=== PATIENT | female | born 1980 | race Caucasian/White ===

== ENCOUNTER 2018-08-14 10:48 | Emergency (ER) | payer MEDICAID ==
[2018-08-14 10:56] VITALS: BP 132/77
--- NOTE | 2018-08-14 11:28 | ER Document Report ---
ED General - General Chief Complaint: Medication Refill Stated Complaint: MED REFILL Time Seen by Provider: 08/14/18 11:21 Mode of Arrival: Ambulatory Information source: Patient Notes: Patient is a 38-year-old female comes emergency room requesting a refill of medications for gabapentin. Patient states she moved from [place] here 2 months ago and she brings with her a bottle written in [place] for that period of time and she is down to just a few pills. She has not been able to find a local primary care provider as of yet and she was changing her Medicare from [place] to here and has not gone through yet. Patient is currently taking this medication for 2 herniated disc in the low back and for fibromyalgia. She has no other complaints at this time and his only medication she is requesting a refill on. TRAVEL OUTSIDE OF THE U[place]. IN LAST 30 DAYS: No - HPI Onset: Other - Nearly out only a few days left. Quality of pain: Achy Associated symptoms: None Exacerbated by: Denies Relieved by: Denies Similar symptoms previously: Yes Recently seen / treated by doctor: No - Related Data Allergies/Adverse Reactions: prednisone Allergy (Verified 08/14/18 10:50) Past Medical History - General Information source: Patient - Social History Smoking Status: Never Smoker Cigarette use (# per day): No Chew tobacco use (# tins/day): No Smoking Education Provided: No Frequency of alcohol use: None Drug Abuse: None Family History: Reviewed & Not Pertinent Patient has suicidal ideation: No Patient has homicidal ideation: No Renal/ Medical History: Denies: Hx Peritoneal Dialysis Past Surgical History: Reports: Hx Orthopedic Surgery - R femur sumeet placed, Hx Tubal Ligation Review of Systems - Review of Systems Constitutional: No symptoms reported EENT: No symptoms reported Cardiovascular: No symptoms reported Respiratory: No symptoms reported Gastrointestinal: No symptoms reported Genitourinary: No symptoms reported Female Genitourinary: No symptoms reported Musculoskeletal: Back pain Skin: No symptoms reported Hematologic/Lymphatic: No symptoms reported Neurological/Psychological: No symptoms reported -: Yes All other systems reviewed and negative Physical Exam - Vital signs Vitals: Temp Pulse Resp BP Pulse Ox 98.0 F 68 16 132/77 H 94 08/14/18 10:55 08/14/18 10:55 08/14/18 10:55 08/14/18 10:55 11/18/18 10:55 Interpretation: Hypertensive - Notes Notes: PHYSICAL EXAMINATION: GENERAL: Well-appearing, well-nourished and in no acute distress. HEAD: Atraumatic, normocephalic. EYES: Pupils equal round and reactive to light, extraocular movements intact, conjunctiva are normal. NECK: Normal range of motion, supple without lymphadenopathy LUNGS: Breath sounds clear to auscultation bilaterally and equal. No wheezes rales or rhonchi. HEART: Regular rate and rhythm without murmur Female : deferred Musculoskeletal: Normal range of motion, no pitting or edema. No cyanosis. NEUROLOGICAL Normal speech, normal gait. Normal sensory, motor exams PSYCH: Normal mood, normal affect. Course - Re-evaluation Re-evalutation: 08/14/18 11:28 After discussing patient reasoning for having to need refill of medications I have decided that she is giving me a good story do believe that she is actually run out of her running out of her medication and I am going to give her a 10- day supply. I have also can give her a family practice list. - Vital Signs Vital signs: Temp Pulse Resp BP Pulse Ox 98.0 F 68 16 132/77 H 94 08/14/18 10:55 08/14/18 10:55 08/14/18 10:55 08/14/18 10:55 08/14/18 10:55 Discharge - Discharge Clinical Impression: Medication refill Condition: Stable Disposition: HOME, SELF-CARE Instructions: Family Physicians / Practices Additional Instructions: As we discussed I am more than happy to give you a refill on the gabapentin for 10 days. I am also going to give you a list for referrals to family practice is they are in the area of the you may contact. Clinics there is one across the street from the hospital you may try the rested step to look them up in on the Internet. Further intervention return to ER for a recheck. Prescriptions: Gabapentin [Neurontin 300 mg Capsule] 300 mg PO ASDIR #70 capsule Referrals: [facility] [NO LOCAL MD] - Follow up as needed
== END 2018-08-14 11:37 | disposition home or self-care (01) ==
LOC: ER 10:48
DX: Z76.0 Encounter for issue of repeat prescription (principal)
CPT/HCPCS: 99282

== ENCOUNTER 2018-11-27 20:15 | Emergency (ER) | payer MEDICAID ==
--- NOTE | 2018-11-27 21:11 | RADIOLOGY REPORT (SQ) ---
EXAM DESCRIPTION: XR FOOT 3 OR MORE VIEWS COMPLETED DATE/TME: 11/27/2018 00:00 CLINICAL HISTORY: 38 years, Female, Dropped a pallet on R foot/ painful COMPARISON: None. FINDINGS: No fracture or dislocation. Soft tissues are unremarkable. IMPRESSION: No acute abnormality.
[2018-11-27] MEDS ORDERED: TRAMADOL HCL 50 MG TABLET PO ONE (21:37)
--- NOTE | 2018-11-27 21:40 | ER Document Report ---
ED General - General Chief Complaint: Foot Injury Stated Complaint: FOOT INJURY Time Seen by Provider: 11/27/18 21:29 Mode of Arrival: Ambulatory Information source: Patient TRAVEL OUTSIDE OF THE U[place] IN LAST 30 DAYS: No - HPI Patient complains to provider of: Right foot injury Onset: This afternoon Onset/Duration: Sudden Quality of pain: Sharp, Throbbing Severity: Moderate Associated symptoms: None Exacerbated by: Movement, Walking Relieved by: Denies Similar symptoms previously: No Recently seen / treated by doctor: No Notes: 38-year-old female with right foot injury. History of fracture in the right foot in the past. Dropped a heavy pallet on it today. Hurts to bear weight. Concerned that is fractured again. - Related Data Allergies/Adverse Reactions: lidocaine Allergy (Verified 11/27/18 20:20) prednisone Allergy (Verified 08/14/18 10:50) succinylcholine Allergy (Verified 11/27/18 20:20) Past Medical History - General Information source: Patient - Social History Smoking Status: Never Smoker Chew tobacco use (# tins/day): No Frequency of alcohol use: None Drug Abuse: None Family History: Reviewed & Not Pertinent Patient has suicidal ideation: No Patient has homicidal ideation: No Pulmonary Medical History: Reports: Hx Asthma Neurological Medical History: Reports: Hx Migraine Renal/ Medical History: Denies: Hx Peritoneal Dialysis Past Surgical History: Reports: Hx Orthopedic Surgery - R femur sumeet placed, Hx Tubal Ligation Review of Systems - Review of Systems Notes: Constitutional: No fevers. No chills. EENT: No eye redness. No eye pain. No ear pain. No sore throat. Cardiovascular: No chest pain. No palpitations. Respiratory: No cough. No shortness of breath. No respiratory distress. Gastrointestinal: No abdominal pain. No nausea, vomiting, or diarrhea. Genitourinary: Atraumatic. No lesions. No pain. No discharge. Musculoskeletal: Positive for right foot pain Skin: No rash or lesions. Lymphatic: No swollen lymph nodes. Neurologic: No headache. No syncope. Psychiatric: No suicidal or homicidal ideation. Physical Exam - Vital signs Vitals: Temp Pulse Resp BP Pulse Ox 98.7 F 70 16 110/67 98 11/27/18 20:21 11/27/18 20:21 11/27/18 20:21 11/27/18 20:21 11/27/18 20:21 - Notes Notes: General: Well-developed, well-nourished. In no acute distress. Non-toxic appearing. Cardiac: Well-perfused. Regular rate and rhythm. No murmurs, rubs, or gallops. Pulmonary: No respiratory distress. No cyanosis. Bilateral lung fiels are clear to auscultation. Abdominal: Non-distended. Non-rigid. Bowels sounds are present in all four quadrants. No guarding or rebound. HEENT: Head is atraumatic. Conjunctivae not reddened. No tearing. PERRL. EOMI. Orbits atraumatic. No periorbital swelling or erythema. Oropharynx is without erythema, swelling, or exudates. Neck: Supple. No adenopathy. No meningismus. Dermatologic: Warm with good turgor. No rash. Atraumatic. Chest: Atraumatic. No chest wall tenderness to palpation. Musculoskeletal: Moves all extremities well. No range of motion deficits. no muscular or joint tenderness. No paraspinal muscle tenderness. no midline spinal tenderness or step-off. Mild bruising mild soft tissue swelling dorsal aspect mid right foot tenderness to palpation. No deformity. No point bony tenderness. Distal neurovascular exam is intact. Full range of motion. Genitourinary: Examination deferred Neurologic: No gross neurologic deficits. Psychiatric: Normal mood. Course - Re-evaluation Re-evalutation: 11/27/18 21:38 Rays are negative. Will Uyriy wrap and discharge - Vital Signs Vital signs: Temp Pulse Resp BP Pulse Ox 98.7 F 70 16 110/67 98 11/27/18 20:21 11/27/18 20:21 11/27/18 20:21 11/27/18 20:21 11/27/18 20:21 - Diagnostic Test Radiology reviewed: Reports reviewed Discharge - Discharge Clinical Impression: Foot contusion Qualifiers: Encounter type: initial encounter Laterality: right Qualified Code(s): S90.31XA - Contusion of right foot, initial encounter Condition: Good Disposition: HOME, SELF-CARE Instructions: Contusion ([facility]) Additional Instructions: Ice for 20 minutes/h. Keep elevated as able. Yuriy wrap should keep the swelling down. Up with your doctor as needed Prescriptions: Tramadol HCl/Acetaminophen [Ultracet 37.5 mg/325 mg Tablet] 1 each PO Q6HP PRN #12 tablet PRN Reason: Referrals: [facility] [Provider Group] - Follow up in 1 week
[2018-11-27 21:48] VITALS: BP 116/71
== END 2018-11-27 21:51 | disposition home or self-care (01) ==
LOC: ER 20:15
DX: S90.31XA Contusion of right foot, initial encounter (principal); M79.671 Pain in right foot; W20.8XXA Other cause of strike by thrown, projected or falling object, initial encounter; J45.909 Unspecified asthma, uncomplicated; Z88.4 Allergy status to anesthetic agent; Z88.8 Allergy status to other drugs, medicaments and biological substances
CPT/HCPCS: 99283

== ENCOUNTER 2019-01-02 21:41 | Emergency (ER) | payer MEDICAID ==
[2019-01-02 22:02] VITALS: BP 141/97
[2019-01-02 23:24] LABS: ABSOLUTE BASOPHILS # (AUTO) 0.1 10^3/uL (0.0-0.2); ABSOLUTE EOSINOPHILS # (AUTO) 0.1 10^3/uL (0.0-0.6); ABSOLUTE MONOCYTES (AUTO) 0.7 10^3/uL (0.1-1.4); ABSOLUTE NEUT (AUTO) 6.8 10^3/uL (1.7-8.2); BASOPHILS % (AUTO) 1.2 % (0-2); HEMATOCRIT 39.4 % (36.0-47.0); HEMOGLOBIN 13.5 g/dL (12.0-15.5); LYMPHOCYTES % (AUTO) 20.8 % (13-45); MEAN CORPUSCULAR HEMOGLOBIN 31.2 pg (27.0-33.4); MEAN CORPUSCULAR HGB CONC 34.3 g/dL (32.0-36.0); MEAN CORPUSCULAR VOLUME 91 fl (80-97); MONOCYTES % (AUTO) 7.3 % (3-13); PLATELET COUNT 156 10^3/uL (150-450); RED BLOOD COUNT 4.32 10^6/uL (3.72-5.28); RED CELL DISTRIBUTION WIDTH 13.1 % (11.5-14.0); SEGMENTED NEUTROPHILS % (AUTO) 69.7 % (42-78); TOTAL CELLS COUNTED % (AUTO) 100 %; WHITE BLOOD COUNT 9.7 10^3/uL (4.0-10.5)
[2019-01-02] MEDS ORDERED: MECLIZINE HCL 25 MG TABLET PO ONE (23:26)
--- NOTE | 2019-01-02 23:30 | ER Document Report ---
ED General - General Chief Complaint: Neck Pain >24hrs old Stated Complaint: NECK PAIN,NAUSEA,VOMITING Time Seen by Provider: 01/02/19 23:16 Primary Care Provider: NASIMA PAULINO PA-C [Primary Care Provider] - Follow up as needed TRAVEL OUTSIDE OF THE [place] IN LAST 30 DAYS: No - HPI Notes: Patient is a 38-year-old female that presents to the emergency department for chief complaint of neck pain and dizziness. Patient reports pain in the back of her neck associated with dizziness for the last 3 days. She states anytime she looks down the dizziness is worse. She can get relief of the dizziness when laying completely flat on her back. She denies history of vertigo in the past. She denies any recent sinus congestion or pressure in her ears. Patient does frequently see a chiropractor and had a last cervical adjustment by him 2 weeks ago. He has taught her how to do cervical spine adjustments at home which she states she does almost daily. She is reporting a tight sharp pain that is midline in the back of her neck. She does chronically have neck pain but states this feels different. The pain is worse when she moves. She has tried Flexeril with no improvement of symptoms. Patient denies any fevers or chills. She does report some blurry vision but denies double vision. She denies any numbness or weakness. She is also endorsing a headache that is bilateral in her occipital region. Past Medical History: Fibromyalgia Past Surgical History: Tubal ligation, right femur surgery dental implants Social History: Denies drugs alcohol and tobacco Family History: Reviewed and noncontributory for presenting illness Allergies: Reviewed, see documented allergy list. REVIEW OF SYSTEMS: CONSTITUTIONAL : No fever No chills No diaphoresis No recent illness EENT: vision changes No congestion No sore throat CARDIOVASCULAR: No chest pain No palpitations RESPIRATORY: No shortness of breath No cough No difficulty breathing GASTROINTESTINAL: No abdominal pain No nausea No vomiting No diarrhea GENITOURINARY: No dysuria No hematuria No difficulty urinating MUSCULOSKELETAL: No back pain No leg pain No arm pain Neck pain SKIN: No rashes No lesions LYMPHATIC: No swollen, enlarged glands. NEUROLOGICAL: No lightheadedness Dizziness headache No weakness No paresthesias PSYCHIATRIC: No anxiety No depression PHYSICAL EXAMINATION: Vital signs reviewed, nursing noted reviewed. GENERAL: Well-appearing, well-nourished and in no acute distress. HEAD: Atraumatic, normocephalic. EYES: No nystagmus, eyes appear normal, extraocular movements intact, sclera anicteric, conjunctiva are normal. ENT: Normal-appearing TMs with no middle ear effusion, nares patent, oropharynx clear without exudates. Moist mucous membranes. NECK: Decreased range of motion in flexion, bilateral paraspinal muscle tenderness and spasm, midline tenderness over C3/C4, no carotid bruit bilaterally, supple without lymphadenopathy, trachea midline LUNGS: Breath sounds clear to auscultation bilaterally and equal. No wheezes rales or rhonchi. HEART: Regular rate and rhythm without murmurs ABDOMEN: Soft, nontender, normoactive bowel sounds. No rebound, guarding, or rigidity. No masses appreciated. EXTREMITIES: Nontender, good range of motion, no pitting or edema. NEUROLOGICAL: No ataxia, normal gait, no focal neurological deficits. Moves all extremities spontaneously Motor and sensory grossly intact on exam. PSYCH: Anxious, normal affect. SKIN: Warm, Dry, normal turgor, no rashes or lesions noted on exposed skin - Related Data Allergies/Adverse Reactions: lidocaine Allergy (Verified 11/27/18 20:20) prednisone Allergy (Verified 08/14/18 10:50) succinylcholine Allergy (Verified 11/27/18 20:20) Past Medical History - Social History Smoking Status: Never Smoker Family History: Reviewed & Not Pertinent Pulmonary Medical History: Reports: Hx Asthma Neurological Medical History: Reports: Hx Migraine Renal/ Medical History: Denies: Hx Peritoneal Dialysis Past Surgical History: Reports: Hx Orthopedic Surgery - R femur sumeet placed, Hx Tubal Ligation Physical Exam - Vital signs Vitals: Temp Pulse Resp BP Pulse Ox 98.1 F 75 16 141/97 H 91 L 01/02/19 22:01 01/02/19 22:01 01/02/19 22:01 01/02/19 22:01 01/02/19 22:01 Course - Re-evaluation Re-evalutation: 01/02/19 23:29 Vitals reviewed. Nursing notes reviewed. Patient appears uncomfortable and has reproducible dizziness with movement of her head. She does have frequent cervical spine HVLA treatments by herself and her chiropractor. I am concerned for possible vertebral artery dissection given her acute vertigo. CT scan of the head and neck will be obtained. Patient given meclizine for her dizziness. 01/03/19 02:37 Patient did have symptomatic relief after meclizine. Images show no vertebral artery stenosis or dissection. Patient has been able to ambulate. She is now agitated and does not wish to be in the emergency room any longer. Patient is demanding her discharge papers immediately. Patient has remained hemodynamically stable with no acute focal neurologic deficits. She will be discharged home. She was encouraged to follow with her primary care she was cautioned on cervical manipulation. Laboratory 01/02/19 01/02/19 01/02/19 23:05 23:05 23:05 WBC 9.7 RBC 4.32 Hgb 13.5 Hct 39.4 MCV 91 MCH 31.2 MCHC 34.3 RDW 13.1 Plt Count 156 Seg Neutrophils % 69.7 Lymphocytes % 20.8 Monocytes % 7.3 Eosinophils % 1.0 Basophils % 1.2 Absolute Neutrophils 6.8 Absolute Lymphocytes 2.0 Absolute Monocytes 0.7 Absolute Eosinophils 0.1 Absolute Basophils 0.1 Sodium 137.7 Potassium 3.7 Chloride 103 Carbon Dioxide 27 Anion Gap 8 BUN 16 Creatinine 1.19 Est GFR ( Amer) > 60 Est GFR (Non-Af Amer) 51 L Glucose 94 Calcium 10.0 Total Bilirubin 0.4 Direct Bilirubin 0.3 Neonat Total Bilirubin Not Reportable Neonat Direct Bilirubin Not Reportable Neonat Indirect Bili Not Reportable AST 41 H ALT 44 Alkaline Phosphatase 45 Total Protein 7.3 Albumin 4.3 Urine Color YELLOW Urine Appearance CLEAR Urine pH 6.0 Ur Specific [place] 1.013 Urine Protein NEGATIVE Urine Glucose (UA) NEGATIVE Urine Ketones NEGATIVE Urine Blood NEGATIVE Urine Nitrite NEGATIVE Urine Bilirubin NEGATIVE Urine Urobilinogen NEGATIVE Ur Leukocyte Esterase NEGATIVE Urine WBC (Auto) 2 Urine RBC (Auto) 2 Urine Bacteria (Auto) TRACE Squamous Epi Cells Auto 2 Urine Mucus (Auto) RARE Urine Ascorbic Acid NEGATIVE Urine HCG, Qual NEGATIVE Head CTA 01/02/19 23:25 IMPRESSION: No evidence of aneurysm, vessel occlusion or stenosis. Neck CTA 01/02/19 23:25 IMPRESSION: No cervical carotid or vertebral stenosis. TECHNICAL DOCUMENTATION: Quality ID # 436: Final reports with documentation of one or more dose reduction techniques (e.g., Automated exposure control, adjustment of the mA and/or kV according to patient size, use of iterative reconstruction technique) copyright 2011 [employer]- All Rights Reserved - Vital Signs Vital signs: Temp Pulse Resp BP Pulse Ox 98.1 F 75 18 141/97 H 94 01/02/19 22:01 01/02/19 22:01 01/03/19 01:00 01/02/19 22:01 01/03/19 01:00 - Laboratory Result Diagrams: 01/02/19 23:05 01/02/19 23:05 Laboratory results interpreted by me: 01/02/19 23:05 Est GFR (Non-Af Amer) 51 L AST 41 H Discharge - Discharge Clinical Impression: Cervical paraspinal muscle spasm, Vertigo Condition: Stable Disposition: HOME, SELF-CARE Instructions: Neck Injury (Cervical Strain) ([facility]), Vertigo ([facility]) Additional Instructions: Please return to the emergency department if you have any worsening, or concern of your symptoms. Please return to the emergency department if you develop chest pain, difficulty breathing, severe abdominal pain, or ongoing vomiting. Please follow-up with your primary care physician in 2-3 days and any other recommended physicians. If prescribed, take all medications as directed. If you have any questions or concerns do not hesitate to return the emergency department for evaluation. [] Prescriptions: Meclizine HCl [Antivert 25 mg Tablet] 25 mg PO TID PRN #21 tablet PRN Reason: Dizziness Referrals: NASIMA PAULINO PA-C [Primary Care Provider] - Follow up as needed
[2019-01-02 23:46] LABS: APPEARANCE,URINE CLEAR; BILIRUBIN,URINE NEGATIVE (NEGATIVE); COLOR,URINE YELLOW; GLUCOSE, URINE NEGATIVE (NEGATIVE); KETONES,URINE NEGATIVE (NEGATIVE); LEUKOCYTE ESTERASE,URINE NEGATIVE (NEGATIVE); NITRITE,URINE NEGATIVE (NEGATIVE); PROTEIN,URINE NEGATIVE (NEGATIVE); URINE SPECIFIC GRAVITY 1.013; UROBILINOGEN,URINE NEGATIVE mg/dL (<2.0)
[2019-01-02 23:49] LABS: ALANINE AMINOTRANSFERASE 44 U/L (9-52); ALBUMIN 4.3 g/dL (3.5-5.0); ALKALINE PHOSPHATASE 45 U/L (38-126); ANION GAP 8 (5-19); ASPARTATE AMINO TRANSFERASE 41 U/L (14-36); BILIRUBIN,DIRECT 0.3 mg/dL (0.0-0.4); BILIRUBIN,TOTAL 0.4 mg/dL (0.2-1.3); BLOOD UREA NITROGEN 16 mg/dL (7-20); CARBON DIOXIDE 27 mmol/L (22-30); CHLORIDE 103 mmol/L (98-107); GLUCOSE 94 mg/dL (75-110); POTASSIUM 3.7 mmol/L (3.6-5.0); SODIUM 137.7 mmol/L (137-145); TOTAL PROTEIN 7.3 g/dL (6.3-8.2)
--- NOTE | 2019-01-03 01:41 | RADIOLOGY REPORT (SQ) ---
CLINICAL HISTORY: vertigo COMPARISON: None. TECHNIQUE: CT HEAD ANGIOGRAPHY WITHOUT THEN WITH IV CONTRAST on 01/02/2019 11:25 PM CDT This exam was performed according to our departmental dose-optimization program, which includes automated exposure control, adjustment of the mA and/or kV according to patient size and/or use of iterative reconstruction technique. MIP reconstructions were generated. Stenoses are calculated by NASCET criteria. FINDINGS: There is no acute hemorrhage, mass effect or midline shift. Hernandez-white differentiation is preserved. There is no hydrocephalus. There is no significant volume loss for age. The calvarium is intact. Orbits and globes are unremarkable. The paranasal sinuses are clear. Mastoid air cells are clear. Bilateral vertebral arteries are diffusely patent. The common carotid and internal carotid arteries are patent. There is a left posterior communicating artery. The vertebral basilar system is patent. Posterior cerebral arteries are unremarkable. The anterior and middle cerebral arteries are unremarkable as well. IMPRESSION: No evidence of aneurysm, vessel occlusion or stenosis.
--- NOTE | 2019-01-03 02:33 | RADIOLOGY REPORT (SQ) ---
EXAM DESCRIPTION: CT NECK ANGIOGRAPHY WITHOUT THEN WITH IV CONTRAST COMPLETED DATE/TME: 01/02/2019 23:25 CLINICAL HISTORY: 38 years, Female, vertigo COMPARISON: None. TECHNIQUE: Axial CT images of the neck were obtained after the administration of IV contrast. MPR and MIP reconstructions were performed. DLP [id number] Images stored on PACS. All CT scanners at this facility use dose modulation, iterative reconstruction, and/or weight based dosing when appropriate to reduce radiation dose to as low as reasonably achievable (ALARA). [facility]: Dose Right [facility]: CareDose [facility]: Dose Right [facility]: Teradose 4D [facility]: [employer] LIMITATIONS: None. FINDINGS: Aortic arch: Standard anatomy. No atherosclerosis. No great vessel origin stenosis. Left carotid system: The common carotid artery, carotid bifurcation , and internal carotid artery have normal course, caliber, and contour without atherosclerosis or stenosis by NASCET criteria Right carotid system: The common carotid artery, carotid bifurcation , and internal carotid artery have normal course, caliber, and contour without atherosclerosis or stenosis by NASCET criteria Vertebral arteries: Left dominant system. Normal course, caliber, and contour without atherosclerosis or stenosis>] Nonvascular tissues: No mucosal contour abnormality, abnormal enhancement, or asymmetry. Normal salivary and thyroid glands. No lymphadenopathy. IMPRESSION: No cervical carotid or vertebral stenosis. TECHNICAL DOCUMENTATION: Quality ID # 436: Final reports with documentation of one or more dose reduction techniques (e.g., Automated exposure control, adjustment of the mA and/or kV according to patient size, use of iterative reconstruction technique) copyright 2010 [employer]- All Rights Reserved
== END 2019-01-03 02:45 | disposition home or self-care (01) ==
LOC: ER 21:41
DX: R42 Dizziness and giddiness (principal); M62.838 Other muscle spasm; M54.2 Cervicalgia; G89.29 Other chronic pain; Z98.890 Other specified postprocedural states; H53.8 Other visual disturbances; R51 Headache; Z88.4 Allergy status to anesthetic agent; Z88.8 Allergy status to other drugs, medicaments and biological substances; J45.909 Unspecified asthma, uncomplicated
CPT/HCPCS: 36415; 70496; 70498; 80053; 81001; 81025; 85025; 99284

== ENCOUNTER → 2019-07-20 | Outpatient (CLI) | payer MEDICAID ==
--- NOTE | 2019-07-20 14:24 | RADIOLOGY REPORT (SQ) ---
EXAM DESCRIPTION: MRI CERVICAL SPINE WITHOUT COMPLETED DATE/TIME: 07/20/2019 1:28 pm REASON FOR STUDY: M54.2 CERVICALGIA M54.2 CERVICALGIA COMPARISON: None. TECHNIQUE: Sagittal and Axial imaging includes T1, T2, STIR and gradient echo sequences. LIMITATIONS: Motion. FINDINGS: ALIGNMENT: Reversal of the lordotic curve. VERTEBRAE: Intact. BONE MARROW: Normal. No marrow replacement or reactive changes. DISCS: Desiccation multiple levels. HARDWARE: None in the spine. CORD AND BASE OF BRAIN: Normal in size and signal intensity. SOFT TISSUES: No soft tissue masses. C1-C2: No significant spinal stenosis. C2-C3: No significant spinal stenosis or exit foraminal stenosis. C3-C4: No significant spinal stenosis or exit foraminal stenosis. C4-C5: Minimal narrowing of the spinal canal due to disc bulge. C5-C6: Mild spinal stenosis due to disc osteophyte complex. Cord contact without cord compression. Moderate neural foraminal narrowing bilaterally. C6-C7: Mild spinal stenosis left paracentral disc osteophyte complex. Cord contact without cord comp ression. Disc contacts the exiting left C7 nerve root in the neural foramen. C7-T1: No significant spinal stenosis or exit foraminal stenosis. UPPER THORACIC: Incompletely imaged. No significant spinal stenosis or exit foraminal stenosis. OTHER: No other significant finding. IMPRESSION: Mild spinal stenosis C5- 6 and C6-7. Disc herniation at C6-7 contacts the exiting left C7 nerve root in the neural foramen. TECHNICAL DOCUMENTATION: JOB ID: [id number] [email or web address]- All Rights Reserved Reading location - IP/workstation name: [email or web address]
== END ==
LOC: RAD 12:17
PROVIDERS: ATTEND Family Medicine
DX: M50.223 Other cervical disc displacement at C6-C7 level (principal); M48.02 Spinal stenosis, cervical region
CPT/HCPCS: 72141

== ENCOUNTER → 2019-09-28 | Outpatient (CLI) | payer MEDICAID | LOC: OD 11:22 | PROVIDERS: ATTEND Otolaryngology | DX: J30.9 Allergic rhinitis, unspecified (principal) | CPT/HCPCS: 36415; 82785; 86003 ==

== ENCOUNTER → 2019-10-02 | Outpatient (CLI) | payer MEDICAID ==
--- NOTE | 2019-10-03 13:26 | WOMENS IMAGING REPORT ---
EXAM DESCRIPTION: 3D SCREENING MAMMO BILAT COMPLETED DATE/TIME: 10/02/2019 11:51 am REASON FOR STUDY: Z80.3 FAMILY HISTORY OF MALIGNANT NEOPLASM OF BREAST Z12.31 ENCNTR SCREEN MAMMOGR AM FOR MALIGNANT NEOPLASM OF YORDY COMPARISON: 09/30/2018. EXAM PARAMETERS: Standard craniocaudal and mediolateral oblique views of each breast recorded using digital acquisition and breast tomosynthesis. Read with the assistance of CAD. .[facility] - [employer] Version 9.2 LIMITATIONS: None. FINDINGS: RIGHT BREAST MASSES: No suspicious masses. CALCIFICATIONS: No new or suspicious calcifications. ARCHITECTURAL DISTORTION: None. ASYMMETRY: Small focal asymmetry in the lateral breast, located 8 to 8.5 cm from the nipple, and in t he medial breast, located 7.5 cm from nipple. OTHER: No other significant findings. LEFT BREAST MASSES: No suspicious masses. CALCIFICATIONS: No new or suspicious calcifications. ARCHITECTURAL DISTORTION: None. ASYMMETRY: None noted. OTHER: No other significant findings. IMPRESSION: Small focal asymmetries in the right breast. No worrisome mammographic findings in the left breast. 0 Incomplete: Needs Additional Imaging Evaluation and/or prior Mammograms for Comparison. BREAST DENSITY: a. The breasts are almost entirely fatty. BIRAD: ASSESSMENT: 0 Incomplete: Needs Additional Imaging Evaluation and/or prior Mammograms for C omparison. RECOMMENDATION: RECOMMENDED FOLLOW-UP: Recommend additional evaluation with compression views of the right breast and follow-up ultrasound if indicated. Recommend routine screening mammography of the left breast. The patient will be contacted for additional imaging. COMMENT: The patient has been notified of the results by letter per [place] requirements. Additional no tification policies are in place for contacting patient with suspicious or incomplete findings. Quality ID #225: The [employer] recommends an annual screening mammogram for women aged 40 years or over. This facility utilizes a reminder system to ensure that all patients receive reminder letters, and/or direct phone calls for appointments. This includes reminders for routine scr eening mammograms, diagnostic mammograms, or other Breast Imaging Interventions when appropriate. Th is patient will be placed in the appropriate reminder system. TECHNICAL DOCUMENTATION: FINDING NUMBER: (1) ASSESSMENT: (1) JOB ID: [id number] [email or web address]- All Rights Reserved Reading location - IP/workstation name: [email or web address]
== END ==
LOC: WI 11:25
PROVIDERS: ATTEND Obstetrics & Gynecology
DX: Z12.31 Encounter for screening mammogram for malignant neoplasm of breast (principal); Z80.3 Family history of malignant neoplasm of breast
CPT/HCPCS: 77063; 77067

== ENCOUNTER → 2019-10-06 | Outpatient (CLI) | payer MEDICAID ==
--- NOTE | 2019-10-07 09:41 | RADIOLOGY REPORT (SQ) ---
EXAM DESCRIPTION: MRI HEAD COMBO COMPLETED DATE/TIME: 10/06/2019 7:51 pm REASON FOR STUDY: (G40.89)OTHER SEIZURES G40.89 OTHER SEIZURES COMPARISON: None. TECHNIQUE: Multiplanar imaging includes noncontrasted T1, T2, FLAIR, diffusion with ADC map and post gadolinium contrast T1 sequences. Images stored on PACS. CONTRAST TYPE AND DOSE: 15 mL Dotarem. RENAL FUNCTION: Not needed. LIMITATIONS: None. FINDINGS: ANATOMY: No anomalies. Normal vascular flow voids. Pituitary fossa normal. CSF SPACES: Normal in size and contour. No hemorrhage. CEREBRUM: Sulci and gyri normal in size and contour. Normal white matter signal on FLAIR imaging. No evidence of hemorrhage, mass, or extraaxial fluid collection. No abnormal enhancement post contrast. POSTERIOR FOSSA: No signal alteration. No hemorrhage. No edema, masses, or mass effect. Internal eugenio tory canals, cerebellopontine angles, mastoids normal. No enhancing lesions. No abnormal enhancement post contrast. DIFFUSION IMAGING: Negative for acute or subacute infarction. ORBITS: No masses. Globes normal. PARANASAL SINUSES: No fluid levels. Mucosa normal. OTHER: No other significant finding. IMPRESSION: NORMAL MRI OF THE BRAIN WITHOUT AND WITH INTRAVENOUS GADOLINIUM CONTRAST. EVIDENCE OF ACUTE STROKE: NO. TECHNICAL DOCUMENTATION: JOB ID: [id number] [employer]- All Rights Reserved Reading location - IP/workstation name: [email or web address]
== END ==
LOC: RAD 09-29 18:02
PROVIDERS: ATTEND Specialist
DX: G40.89 Other seizures (principal); G43.709 Chronic migraine without aura, not intractable, without status migrainosus
CPT/HCPCS: 70553; A9576

== ENCOUNTER → 2019-10-16 | Outpatient (CLI) | payer MEDICAID ==
--- NOTE | 2019-10-16 12:59 | WOMENS IMAGING REPORT ---
EXAM DESCRIPTION: RIGHT DIAGNOSTIC MAMMO W/CAD COMPLETED DATE/TIME: 10/16/2019 12:46 pm REASON FOR STUDY: R92.2 RIGHT DIAGNOSTIC MAMMOGRAM R92.2 INCONCLUSIVE MAMMOGRAM COMPARISON: 2018 EXAM PARAMETERS: Standard right whole breast 90 mediolateral, cone compression craniocaudal and med iolateral oblique images of the right breast recorded with digital acquisition. Read with the assistance of CAD. .[facility] - [employer] Version 9.2 LIMITATIONS: None. FINDINGS: BREAST LATERALITY: Right MASSES: No suspicious masses. CALCIFICATIONS: No new or suspicious calcifications. ARCHITECTURAL DISTORTION: None. ASYMMETRY: None noted. OTHER: No other significant findings. IMPRESSION: No mammographic evidence for malignancy right breast BREAST DENSITY: b. There are scattered areas of fibroglandular density. BIRAD: ASSESSMENT: 1 Negative. RECOMMENDATION: RECOMMENDED FOLLOW UP: Please continue yearly bilateral screening mammography/ tomos ynthesis in September 2020 SPECIFIC INTERVENTION/IMAGING/CONSULTATION RECOMMENDED:No additional intervention/ imaging/consultati on needed at this time. COMMUNICATION:Patient notified by letter COMMENT: The patient has been notified of the results by letter per MQSA requirements. Additional no tification policies are in place for contacting patient with suspicious or incomplete findings. Quality ID #[id number]: The [employer] recommends an annual screening mammogram for women aged 40 years or over. This facility utilizes a reminder system to ensure that all patients receive reminder letters, and/or direct phone calls for appointments. This includes reminders for routine scr eening mammograms, diagnostic mammograms, or other Breast Imaging Interventions when appropriate. Th is patient will be placed in the appropriate reminder system. TECHNICAL DOCUMENTATION: FINDING NUMBER: (1) ASSESSMENT: (1) JOB ID: [id number] [employer]- All Rights Reserved Reading location - IP/workstation name: [email or web address]
== END ==
LOC: WI 12:25
PROVIDERS: ATTEND Obstetrics & Gynecology
DX: R92.2 Inconclusive mammogram (principal)
CPT/HCPCS: 77065

== ENCOUNTER 2019-11-24 16:29 | Emergency (ER) | payer MEDICAID ==
--- NOTE | 2019-11-24 17:17 | ER Document Report ---
ED Medical Screen (RME) - General Chief Complaint: Palpitations Stated Complaint: PALPITATIONS Time Seen by Provider: 11/24/19 17:12 Primary Care Provider: DAISHA LEBLANC DO [Primary Care Provider] - Follow up as needed TRAVEL OUTSIDE OF THE [place] IN LAST 30 DAYS: No - HPI Notes: 11/24/19 17:16 Patient is a 39-year-old female with history of chronic back pain, asthma presents complaining of feeling palpitations and weak after she had an injection to her piriformis by Decadron today. Patient is that she is able to eat and drink without difficulty. She is urinating normally and having normal bowel movements. She has no other concerns or complaints. Denies any prolonged immobilization, distance travel, recent surgery/trauma, personal cancer history, hormone use, smoking, or previous DVT/PE. Denies any prolonged immobilization, distance travel, recent surgery/trauma, personal cancer history, hormone use, smoking, or previous DVT/PE. Denies ALAMO, fever, chest pain, shortness of breath, neck pain, URI, n/v/d, Abd pain, dysuria, back pain, or rash. I have treated and performed a rapid initial assessment of this patient. A comprehensive ED assessment and evaluation of the patient, analysis of test results and completion of medical decision making process will be conducted by additional ED providers. PHYSICAL EXAMINATION: GENERAL: Well-appearing, well-nourished and in no acute distress. A&Ox4. Answers questions appropriately. LUNGS: Breath sounds clear to auscultation bilaterally and equal. No wheezes rales or rhonchi. HEART: Regular rate and rhythm without murmurs, rubs, gallops. Extremities: No cyanosis, clubbing, or edema b/l. Derrick negative bilaterally. No lower extremity asymmetry. NEUROLOGICAL: Normal speech, normal gait. PSYCH: Normal mood, normal affect. - Related Data Allergies/Adverse Reactions: lidocaine Allergy (Verified 11/27/18 20:20) methylprednisolone Allergy (Verified 11/24/19 17:13) prednisone Allergy (Verified 08/14/18 10:50) succinylcholine Allergy (Verified 11/27/18 20:20) Past Medical History Pulmonary Medical History: Reports: Hx Asthma Neurological Medical History: Reports: Hx Migraine Renal/ Medical History: Denies: Hx Peritoneal Dialysis Past Surgical History: Reports: Hx Orthopedic Surgery - R femur sumeet placed, Hx Tubal Ligation Physical Exam - Vital signs Vitals: Temp Pulse Resp BP Pulse Ox 98.4 F 115 H 18 146/88 H 98 11/24/19 16:45 11/24/19 16:45 11/24/19 16:45 11/24/19 16:45 11/24/19 16:45 Course - Vital Signs Vital signs: Temp Pulse Resp BP Pulse Ox 98.4 F 115 H 18 146/88 H 98 11/24/19 16:45 11/24/19 16:45 11/24/19 16:45 11/24/19 16:45 11/24/19 16:45 Doctor's Discharge - Discharge Referrals: DAISHA LEBLANC DO [Primary Care Provider] - Follow up as needed
--- NOTE | 2019-11-24 18:01 | RADIOLOGY REPORT (SQ) ---
EXAM DESCRIPTION: CHEST 2 VIEWS COMPLETED DATE/TIME: 11/24/2019 5:49 pm REASON FOR STUDY: palpitations COMPARISON: None. EXAM PARAMETERS: NUMBER OF VIEWS: two views TECHNIQUE: Digital Frontal and Lateral radiographic views of the chest acquired. RADIATION DOSE: NA LIMITATIONS: none FINDINGS: LUNGS AND PLEURA: No opacities, masses or pneumothorax. No pleural effusion. MEDIASTINUM AND HILAR STRUCTURES: No masses or contour abnormalities. HEART AND VASCULAR STRUCTURES: Heart normal size. No evidence for failure. BONES: No acute findings. HARDWARE: None in the chest. OTHER: No other significant finding. IMPRESSION: NO ACUTE RADIOGRAPHIC FINDING IN THE CHEST. TECHNICAL DOCUMENTATION: JOB ID: [id number] 2010 [employer]- All Rights Reserved Reading location - IP/workstation name: [email or web address]
[2019-11-24] MEDS ORDERED: ACETAMINOPHEN 325 MG TABLET PO ONE (18:04)
[2019-11-24 18:32] LABS: ABSOLUTE LYMPHOCYTES (AUTO) 0.6 10^3/uL (0.5-4.7); ABSOLUTE MONOCYTES (AUTO) 0.2 10^3/uL (0.1-1.4); ABSOLUTE NEUT (AUTO) 6.6 10^3/uL (1.7-8.2); BASOPHILS % (AUTO) 0.2 % (0-2); HEMOGLOBIN 14.3 g/dL (12.0-15.5); LYMPHOCYTES % (AUTO) 8.2 % (13-45); MEAN CORPUSCULAR HEMOGLOBIN 30.8 pg (27.0-33.4); MEAN CORPUSCULAR HGB CONC 34.8 g/dL (32.0-36.0); MEAN CORPUSCULAR VOLUME 89 fl (80-97); MONOCYTES % (AUTO) 2.4 % (3-13); PLATELET COUNT 170 10^3/uL (150-450); RED BLOOD COUNT 4.63 10^6/uL (3.72-5.28); SEGMENTED NEUTROPHILS % (AUTO) 89.2 % (42-78); TOTAL CELLS COUNTED % (AUTO) 100 %; WHITE BLOOD COUNT 7.4 10^3/uL (4.0-10.5)
[2019-11-24 18:36] LABS: APPEARANCE,URINE CLEAR; BILIRUBIN,URINE NEGATIVE (NEGATIVE); COLOR,URINE STRAW; GLUCOSE, URINE 50 mg/dL (NEGATIVE); KETONES,URINE NEGATIVE (NEGATIVE); PROTEIN,URINE NEGATIVE (NEGATIVE); URINE SPECIFIC GRAVITY 1.005; UROBILINOGEN,URINE NEGATIVE mg/dL (<2.0)
[2019-11-24 18:50] LABS: ALBUMIN 5.1 g/dL (3.5-5.0); ALKALINE PHOSPHATASE 47 U/L (38-126); ANION GAP 11 (5-19); ASPARTATE AMINO TRANSFERASE 21 U/L (14-36); BILIRUBIN,DIRECT 0.3 mg/dL (0.0-0.4); BILIRUBIN,TOTAL 0.4 mg/dL (0.2-1.3); BLOOD UREA NITROGEN 20 mg/dL (7-20); CALCIUM 10.5 mg/dL (8.4-10.2); CARBON DIOXIDE 25 mmol/L (22-30); CHLORIDE 102 mmol/L (98-107); GLUCOSE 142 mg/dL (75-110); POTASSIUM 4.1 mmol/L (3.6-5.0); TOTAL PROTEIN 8.5 g/dL (6.3-8.2)
[2019-11-24 21:15] LABS: FREE T3 2.49 pg/mL (2.77-5.27); FREE T4 (FREE THYROXINE) 1.03 ng/dL (0.78-2.19)
--- NOTE | 2019-11-24 21:23 | ER Document Report ---
ED General - General Chief Complaint: Palpitations Stated Complaint: PALPITATIONS Time Seen by Provider: 11/24/19 17:12 Primary Care Provider: DAISHA LEBLANC DO [Primary Care Provider] - Follow up as needed Mode of Arrival: Ambulatory Information source: Patient TRAVEL OUTSIDE OF THE [place] IN LAST 30 DAYS: No - HPI Onset: This morning Onset/Duration: Sudden Quality of pain: No pain Associated symptoms: Other - palpitations, weakness, dizziness Exacerbated by: Denies Relieved by: Denies Similar symptoms previously: No Recently seen / treated by doctor: Yes - patient had decadron back injections today Notes: 39 year old female with a history of Migraine Headaches (she is followed by Neurology) and Asthma here for palpitations, dizziness, weakness and a headache which started about an hour after getting a Decadron back injection today. The patient denies rash, trouble breathing, shortness of breath. The patient says this headache is less severe then her typical migraine headache. The patient says her heart will flutter and this will last for several minutes and then go away. The patient feels she is having side effects from the steroid injection. - Related Data Allergies/Adverse Reactions: lidocaine Allergy (Verified 11/27/18 20:20) methylprednisolone Allergy (Verified 11/24/19 17:13) prednisone Allergy (Verified 08/14/18 10:50) prilocaine Allergy (Verified 11/24/19 17:20) procaine Allergy (Verified 11/24/19 17:20) succinylcholine Allergy (Verified 11/27/18 20:20) tetracaine Allergy (Verified 11/24/19 17:20) Home Medications: Gabapentin. Tramadol. Ativan. Albuterol. Advair. Fluticosone. Cyclobenzaprine Past Medical History - General Information source: Patient - Social History Smoking Status: Never Smoker Frequency of alcohol use: None Drug Abuse: None Lives with: Family Family History: Reviewed & Not Pertinent Patient has suicidal ideation: No Patient has homicidal ideation: No Pulmonary Medical History: Reports: Hx Asthma Neurological Medical History: Reports: Hx Migraine Renal/ Medical History: Denies: Hx Peritoneal Dialysis Past Surgical History: Reports: Hx Orthopedic Surgery - R femur sumeet placed, Hx Tubal Ligation Review of Systems - Review of Systems Constitutional: Weakness EENT: No symptoms reported Cardiovascular: Palpitations, Heart racing Respiratory: No symptoms reported Gastrointestinal: No symptoms reported Genitourinary: No symptoms reported Female Genitourinary: No symptoms reported Musculoskeletal: No symptoms reported Skin: No symptoms reported Hematologic/Lymphatic: No symptoms reported Neurological/Psychological: Headaches -: Yes All other systems reviewed and negative Physical Exam - Vital signs Vitals: Temp Pulse Resp BP Pulse Ox 98.4 F 115 H 18 146/88 H 98 11/24/19 16:45 11/24/19 16:45 11/24/19 16:45 11/24/19 16:45 11/24/19 16:45 - Notes Notes: GENERAL: Well-appearing, well-nourished and in no acute distress. HEAD: Atraumatic, normocephalic. EYES: Pupils equal round and reactive to light, extraocular movements intact, sclera anicteric, conjunctiva are normal. ENT: Nares patent, oropharynx clear without exudates. Moist mucous membranes. NECK: Normal range of motion, supple without lymphadenopathy or JVD. LUNGS: Breath sounds clear to auscultation bilaterally and equal. No wheezes rales or rhonchi. HEART: Regular rate and rhythm without murmurs, rubs or gallops. ABDOMEN: Soft, nontender, normoactive bowel sounds. No guarding, no rebound. No masses appreciated. EXTREMITIES: Normal range of motion, no pitting or edema. No clubbing or cyanosis. NEUROLOGICAL: Cranial nerves II through XII grossly intact. Normal speech, normal gait. PSYCH: Normal mood, normal affect. SKIN: Warm, Dry, normal turgor, no rashes or lesions noted. Course - Re-evaluation Re-evalutation: 11/24/19 21:30 The patient is here for palpitations, dizziness, weakness, and headache which started after a Decadron Back Injection. The patient feels her symptoms are a side effect of the injection. The patient had labs ordered in triage after MSE and they were unremarkable except her TSH was noted to be somewhat low. Will have patient follow up with her PCP given her slightly low TSH, normal T4, and slightly low T3. No need to further work up as she likely had side effects of the injection and nothing more serious. Patient told she may need an outpatient Holter Monitor if her palpitations persist. - Vital Signs Vital signs: Temp Pulse Resp BP Pulse Ox 98.4 F 115 H 15 146/88 H 100 11/24/19 16:45 11/24/19 16:45 11/24/19 19:05 11/24/19 16:45 11/24/19 19:08 - Laboratory Result Diagrams: 11/24/19 18:16 11/24/19 18:16 Laboratory results interpreted by me: 11/24/19 11/24/19 11/24/19 18:07 18:16 18:16 Lymph % (Auto) 8.2 L Swain % (Auto) 2.4 L Seg Neutrophils % 89.2 H Glucose 142 H Calcium 10.5 H Total Protein 8.5 H Albumin 5.1 H TSH Free T3 pg/mL Urine Glucose (UA) 50 H Urine Blood SMALL H 11/24/19 11/24/19 18:16 18:16 Lymph % (Auto) Swain % (Auto) Seg Neutrophils % Glucose Calcium Total Protein Albumin TSH 0.40 L Free T3 pg/mL 2.49 L Urine Glucose (UA) Urine Blood - Diagnostic Test Radiology reviewed: Image reviewed, Reports reviewed - EKG Interpretation by Me EKG shows normal: Sinus rhythm, [place], Intervals, QRS Complexes, ST-T Waves Rate: Tachycardia Rhythm: NSR Discharge - Discharge Clinical Impression: Palpitation Headache Qualifiers: Headache type: unspecified Headache chronicity pattern: acute headache Intr actability: not intractable Qualified Code(s): R51 - Headache Disposition: HOME, SELF-CARE Instructions: Palpitations (Irregular or Rapid Heartrate) ([facility]), Headache ([facility]) Additional Instructions: Follow up with your primary care doctor and tell your doctor about the symptoms you had today after your injections. Also tell your doctor you had labs in the in ER showing a slightly low TSH (0.4), Normal Free T4 (1.03) and slightly Low T3 (2.49). You likely just were experiencing side effects of the injection but if you keep having palpitations you may need an outpatient satellite project site monitor to be set up. Referrals: DAISHA LEBLANC, DO [Primary Care Provider] - Follow up as needed
[2019-11-24] MEDS ORDERED: METOCLOPRAMIDE HCL 10 MG TABLET PO ONE (21:29)
[2019-11-24] MEDS ORDERED: NAPROXEN 250 MG TABLET PO ONE (21:29)
[2019-11-24 22:56] VITALS: BP 128/64
--- NOTE | 2019-11-25 01:10 | EKG REPORT ---
SEVERITY:- OTHERWISE NORMAL ECG - SINUS TACHYCARDIA : Confirmed by: Moriah Douglas MD 25-Nov-2019 01:09:32
== END 2019-11-24 22:45 | disposition home or self-care (01) ==
LOC: ER 16:29
DX: R00.2 Palpitations (principal); R51 Headache; R53.1 Weakness; R42 Dizziness and giddiness; Z98.51 Tubal ligation status
CPT/HCPCS: 93005; 99285; 36415; 84439; 83735; 84443; 85025; 81025; 80053; 81001; 84484; 84481; 71046; 93010; J3490

== ENCOUNTER 2020-04-08 22:43 | Emergency (ER) | payer MEDICAID | END 2020-04-09 04:20 | disposition left against medical advice (07) | LOC: ER 22:43 | DX: Z53.21 Procedure and treatment not carried out due to patient leaving prior to being seen by health care provider (principal) ==